=== PATIENT | female | born 1940 | race Caucasian/White ===

== ENCOUNTER 2017-02-05 15:03 | Observation (INO) ==
--- NOTE | 2017-02-05 15:47 | EKG Report ---
Test Performed on : 02/05/2017 3:02:55 PM Test Reason : GENERAL ADULT Blood Pressure : / mmHG Vent. Rate : 082 BPM Atrial Rate : 082 BPM P-R Int : 178 ms QRS Dur : 100 ms QT Int : 414 ms P-R-T Axes : 088 031 067 degrees QTc Int : 483 ms Sinus rhythm. with frequent premature ventricular complexes. in a pattern of bigeminy. Otherwise normal ECG No previous ECGs available Unconfirmed Result
[2017-02-05 15:55] LABS: MANUAL DIFF NEEDED? NO
[2017-02-05 15:57] LABS: BASO% 1.5 % (0.0-0.8); EOS# 0.17 X1000 (0.0-0.7); EOS% 3.2 % (0.0-10.0); HEMATOCRIT 43.7 % (37.0-47.0); HEMOGLOBIN 14.7 g/dL (12.0-16.0); IMM GRAN# 0.01 X1000 (0.0-0.04); IMM GRAN% 0.2 % (0.0-0.5); LYMPH# 1.61 X1000 (1.2-3.4); LYMPH% 30.4 % (20.5-51.1); MCH 29.8 PG (27-31); MCHC 33.6 g/dL (33-37); MCV 88.6 FL (81-99); MONO% 11.3 % (1.7-9.3); MPV 10.1 FL (7.4-10.4); NEUT% 53.4 % (42.2-75.2); PLT 237 X1000 (130-400); RBC 4.93 XMIL (4.2-5.4)
[2017-02-05 16:16] LABS: URINE CULTURE PL NEEDED? NO
[2017-02-05 16:25] LABS: AGAP 16; ALBUMIN 4.6 g/dL (3.5-5.0); ALKALINE PHOSPHATASE 60 U/L (32-104); BUN 16 mg/dL (8-22); CALCIUM 9.8 mg/dL (8.8-10.2); CHLORIDE 103 mmol/L (98-107); CK PROFILE 131 U/L (24-173); COSMO 280; GOT 25 U/L (10-30); GPT 14 U/L (10-36); MAGNESIUM 2.2 mg/dL (1.5-2.7); POTASSIUM 3.9 mmol/L (3.5-5.1); SODIUM 140 mmol/L (136-145); TCO2 22 mmol/L (25-35); TOTAL PROTEIN 7.1 g/dL (6.3-8.3)
[2017-02-05 16:47] LABS: INR 0.88 (0.86-1.15); PROTIME 12.3 Seconds (12.1-15.5)
[2017-02-05 16:47] LABS: BILIRUBIN URINE NEGATIVE (NEGATIVE); BLOOD URINE NEGATIVE (NEGATIVE); CLARITY CLEAR (CLEAR); COLOR YELLOW; GLUCOSE URINE NEGATIVE (NEGATIVE); LEUKOCYTES URINE NEGATIVE (NEGATIVE); NITRITE URINE NEGATIVE (NEGATIVE); PH URINE 6.5; PROTEIN URINE NEGATIVE (NEGATIVE); SP GRAVITY URINE 1.005; URINE EPITHELIAL CELLS <10 /HPF (<10); UROBILINOGEN URINE NORMAL
[2017-02-05 16:48] LABS: PTT PL 25.1 Seconds (22.6-43.9)
[2017-02-05 16:48] LABS: URINE SOURCE CLEAN CATCH
--- NOTE | 2017-02-05 16:51 | Diag Imaging Result Document ---
PROCEDURE NAME: CHEST-2 VIEWS - 02/05/2017 CHEST X-RAY TWO-VIEWS: COMPARISON: None. FINDINGS: There is some scattered linear atelectasis or scarring in the lung bases. No focal infiltrates, pneumothorax, or pleural effusion. There is a moderate compression fracture at T12 that appears probably chronic. IMPRESSION: No specific acute disease.
--- NOTE | 2017-02-05 17:33 | ED EKG INTERP ---
This chart was entered by Miladys Herzog Scribe, acting as scribe for Tomy Jay MD. EKG Interpretation - EKG Time of EKG reading by physician:: 15:02 EKG Read and Signed by:: Tomy Jay EKG Interpretation (*Must complete 3 of following elements*): Abnormal (rhythm - sinus rhythm with frequent premature ventricular complexes in a pattern of bigeminy) Rate: 82 This chart was documented by the indicated scribe, (Miladys Herzog Scribe) and accurately reflects the services I performed and decisions made by me, Tomy Jay MD, as attested by the provider's signature.
--- NOTE | 2017-02-05 17:40 | PROVIDER DOCUMENTATION ---
This chart was entered by Miladys Herzog Scribe, acting as scribe for Tomy Jay MD. HPI-Cardiac General - General Chief Complaint: General Adult Stated Complaint: LOW PULSE Time Seen by Provider: 02/05/17 15:30 Source: patient Allergies/Adverse Reactions: Patient Allergies Allergy/AdvReac Type Severity Reaction Status Date / Time Penicillins AdvReac Unknown Verified 02/05/17 15:03 Home Medications: Home Medication List Medication Instructions Recorded Confirmed Last Taken Type Aspirin [Aspir-Low] 81 mg PO DAILY 02/05/17 02/05/17 02/05/17 History Valsartan/Hydrochlorothiazide 1 each PO DAILY 02/05/17 02/05/17 02/05/17 History [Valsartan-Hctz 160-12.5 mg Tab] - History of Present Illness-Cardiac Nature of Presenting Problem: Pt is 76 y/o F presents to the ED with bradycardia. Pt states heart rate has been slow the past two days. Pt states was at PCP and was sent here for slow heart rate. Pt denies chest pain. Location: denies: substernal, central, epigastric, shoulder, back, abdomen Quality of Pain: reports: none Onset/Duration: 2 days ago Timing: intermittent Context/Activities at Onset: reports: light activity Modifying Factors: improves with: nothing Palpitation Quality: slow heart rate History of arrythmia: reports: none Recent use of:: reports: no stimulants Nitro Today/Relief: reports: no nitro taken today Aspirin Treatment Today: reports: no aspirin today Prior Chest Pain/Cardiac Workup: reports: no prior chest pain, no prior cardiac workup Associated Symptoms: reports: denies symptoms Similar Symptoms Previously?: Yes Recently Seen Here or By Another Healthcare Provider: Yes Review of Systems - Adult - REVIEW OF SYSTEMS - ADULT Constitutional: reports: no symptoms reported Eyes: reports: no symptoms reported Ears, Nose, Mouth & Throat: reports: no symptoms reported Cardiovascular: reports: irregular heart rate (dorita). denies: chest pain, heart murmur Respiratory: reports: no symptoms reported Gastrointestinal: reports: no symptoms reported Genitourinary: reports: no symptoms reported Musculoskeletal: reports: no symptoms reported Integumentary: reports: no symptoms reported Neurological: reports: no symptoms reported Psychiatric: reports: no symptoms reported Endocrine: reports: no symptoms reported Hematologic/Lymphatic: reports: no symptoms reported Allergic/Immunologic: reports: no symptoms reported All Other Systems: Reviewed and Negative Past History - Adult - PAST MEDICAL HISTORY-ADULT Review of Records: reports: Nursing Assessment Review, Medications Reviewed, Social history reviewed & non-contributory. Major Childhood Illnesses: reports: denies history Cardiovascular: reports: HTN Respiratory: reports: denies history Gastrointestinal: reports: denies history Obstetrical/Gynecological: reports: denies history Genitourinary: reports: denies history Musculoskeletal: reports: denies history Neurological: reports: denies history Endocrine/Immune: reports: denies history Other Conditions: reports: denies history - PRIOR SURGERIES/PROCEDURES Surgical/Procedure History: reports: hysterectomy - IMMUNIZATION STATUS Childhood Immunizations: See Nurse Assessment Flu Vaccine: See Nurse Assessment - FAMILY HISTORY Family History: reviewed, not pertinent - SOCIAL HISTORY Smoking: denies Substance Use: denies Living Situation: family Physical Exam-General - PHYSICAL EXAM-ADULT Initial Vital Signs Reviewed: Yes - CONSTITUTIONAL General Appearance: appears well, alert, no apparent distress - EYES Eyes: PERRL/EOMI, pink conjunctivae - HEAD, EARS, NOSE, MOUTH & THROAT HENMT: normocephalic/atraumatic, moist mucous membranes, normal ENT inspection, TMs normal, pharynx normal - NECK Neck: non-tender, full range of motion, supple, normal inspection - RESPIRATORY Respiratory: chest non-tender, lungs clear, normal breath sounds, no pleuratic chest pain, no respiratory distress, no accessory muscle use - CARDIOVASCULAR Cardiovascular: normal peripheral pulses, regular rate, rhythm, no edema, no gallop, no JVD, no murmur - GASTROINTESTINAL (ABDOMEN) Abdominal Exam: normal bowel sounds, non tender, soft, no organomegaly, no pulsatile mass - LYMPHATIC Lymphatic: no adenopathy - MUSCULOSKELETAL Back Exam: normal inspection, no CVA tenderness, no vertebral tenderness Extremity: normal range of motion, non-tender, normal gait, normal inspection, no pedal edema, no calf tenderness, normal capillary refill - SKIN Integumentary: normal color, normal turgor, warm/dry - NEUROLOGIC Neurologic: grossly normal - PSYCHIATRIC Psych/Mental Status: normal mood/affect, oriented x 3 Progress - PLAN OF CARE/RESULTS Progress/Plan/Lab Results: Vital Signs - 8 hr 02/05/17 15:05 02/05/17 15:46 02/05/17 16:05 Pulse Rate 83 68 79 Respiratory Rate 24 15 20 Blood Pressure 191/85 166/78 192/76 O2 Sat by Pulse Oximetry 98 93 L 96 02/05/17 16:31 02/05/17 16:41 02/05/17 17:39 Pulse Rate 71 68 66 Respiratory Rate 24 17 14 Blood Pressure 171/61 163/63 155/68 O2 Sat by Pulse Oximetry 96 95 95 Laboratory Results - last 24 hr 02/05/17 02/05/17 02/05/17 15:13 15:13 15:13 WBC RBC Hgb Hct MCV MCH MCHC RDW Std Deviation Plt Count MPV Immature Gran % (Auto) Neut % (Auto) Lymph % (Auto) [place] % (Auto) Eos % (Auto) Baso % (Auto) Immature Gran # (Auto) Neut # (Auto) Lymph # (Auto) [place] # (Auto) Eos # (Auto) Baso # (Auto) PT INR APTT (Factor Assay) D-Dimer Sodium 140 Potassium 3.9 Chloride 103 Carbon Dioxide 22 L Anion Gap 16 BUN 16 Creatinine 0.7 Estimated GFR/1.73 m2 > 60 BUN/Creatinine Ratio 23 Glucose 87 Calculated Osmolality 280 Calcium 9.8 Magnesium 2.2 Total Bilirubin 0.60 AST 25 ALT 14 Alkaline Phosphatase 60 Creatine Kinase 131 Troponin T < 0.010 [id number]-Mtatkqmhtzw Pept 521 H Total Protein 7.1 Albumin 4.6 Globulin 3.0 Albumin/Globulin Ratio 2.0 Urine Source Urine Color Urine Clarity Urine pH Ur Specific [place] Urine Protein Urine Ketones Urine Blood Urine Nitrite Urine Bilirubin Urine Urobilinogen Urine WBC Ur Epithelial Cells Urine Glucose 02/05/17 02/05/17 02/05/17 15:13 15:13 16:00 WBC 5.30 RBC 4.93 Hgb 14.7 Hct 43.7 MCV 88.6 MCH 29.8 MCHC 33.6 RDW Std Deviation 12.9 Plt Count 237 MPV 10.1 Immature Gran % (Auto) 0.2 Neut % (Auto) 53.4 Lymph % (Auto) 30.4 [place] % (Auto) 11.3 H Eos % (Auto) 3.2 Baso % (Auto) 1.5 H Immature Gran # (Auto) 0.01 Neut # (Auto) 2.83 Lymph # (Auto) 1.61 [place] # (Auto) 0.60 H Eos # (Auto) 0.17 Baso # (Auto) 0.08 PT 12.3 INR 0.88 APTT (Factor Assay) 25.1 D-Dimer 0.66 H Sodium Potassium Chloride Carbon Dioxide Anion Gap BUN Creatinine Estimated GFR/1.73 m2 BUN/Creatinine Ratio Glucose Calculated Osmolality Calcium Magnesium Total Bilirubin AST ALT Alkaline Phosphatase Creatine Kinase Troponin T Fkg-B-Olnuvubpywn Pept Total Protein Albumin Globulin Albumin/Globulin Ratio Urine Source CLEAN CATCH Urine Color YELLOW Urine Clarity CLEAR Urine pH 6.5 Ur Specific [place] 1.005 Urine Protein NEGATIVE Urine Ketones NEGATIVE Urine Blood NEGATIVE Urine Nitrite NEGATIVE Urine Bilirubin NEGATIVE Urine Urobilinogen NORMAL Urine WBC NEGATIVE Ur Epithelial Cells <10 Urine Glucose NEGATIVE Orders Category Date Time Status Cardiac Monitoring DIRECTED Care 02/05/17 15:48 Active Saline Loc NOW Care 02/05/17 15:48 Active CHEST-2 VIEWS [RAD] Stat Exams 02/05/17 15:48 Draft CBC WITH ELECTRONIC DIFF [HEME] Stat Lab 02/05/17 15:13 Completed CK PROFILE [SP CHEM] Stat Lab 02/05/17 15:13 Completed COMPREHENSIVE METABOLIC PANEL [CHEM] Stat Lab 02/05/17 15:13 Completed D-DIMER PL [COAG] Stat Lab 02/05/17 15:13 Completed MAGNESIUM [CHEM] Stat Lab 02/05/17 15:13 Completed PRO B-NATRIURETIC PEPTIDE Stat Lab 02/05/17 15:13 Com[address]IME WITH INR PL [COAG] Stat Lab 02/05/17 15:[address] [COAG] Stat Lab 02/05/17 15:13 Completed TROPONIN T Stat Lab 02/05/17 15:[address] W/POSS RFLX CULT [URINALYSIS] Stat Lab 02/05/17 16:00 Completed EKG [EKG] Stat Ther 02/05/17 15:45 Draft Result Diagrams: 02/05/17 15:13 02/05/17 15:13 - REASSESSMENT Reassessment #1 Time Reassessed: 17:37 Status: improving (Pt is completely asymptomatic. On monitor, Pulse Ox shows her HR=30s, by the cardiac monitoring shows 70s, and her cardiac strip shows bigeminy - one normal beat follows a PVC. Pt showed me a log for her BP and HR since several days ago - normal BPs, but HR=30s-70s. Sounds like her BP machine picked up the bigeminy as one beat. Called to Dr. Phong Gar's office and awating for call back.) Reassessment #2 Time Reassessed: 17:49 Status: improving - XRAY 1 XRAY Study: Chest Impression: Normal XRAY Interpretation: no acute disease - CONSULTS/PCP/HOSPITALIST Notification #1 *Consult/PCP/Hospitalist*: Dr. Gar Time Discussed: 17:44 (Dr. Gar states talk to Hospitalist) Reason/Comments: Dr. Jay consulted with Dr. Gar about Pt Consult Disposition: other (Per Dr. Gar's request, pt will be admitted to Dr. Ferrer) Departure - Departure Time of Disposition Decision: 17:50 DIAGNOSIS: Arrhythmia Qualifiers: Arrhythmia type: other cardiac arrhythmia Qualified Code(s): I49.8 - Other specified cardiac arrhythmias Disposition: ADMITTED INPATIENT 09 Certified Medical Emergency: Emergent Condition: Stable Referrals and Follow-Ups: Phong Gar MD [Primary Care Provider] - - Critical Care Note This patient required my direct personal management.: No This chart was documented by the indicated scribe, (Miladys Herzog Scribe) and accurately reflects the services I performed and decisions made by me, Tomy Jay MD, as attested by the provider's signature.
[2017-02-06] MEDS ORDERED: ASPIRIN EC PO SCH (09:00)
--- NOTE | 2017-02-06 10:33 | Diag Imaging Result Document ---
PROCEDURE NAME: ANGIOGRAM/PULMONARY ARTERIES - 02/06/2017 CTA CHEST: COMPARISON: None available. FINDINGS: There is no evidence of pulmonary embolism. There is mild patchy aortic atherosclerotic calcification. There is no evidence of aortic aneurysm. The heart does not appear to be significantly enlarged. There is a small calcified right hilar lymph node suggesting prior granulomatous disease. There is a calcified granuloma at the left lung apex. There are a few small noncalcified nodules bilaterally. For reference, the largest measured nodule on the left is in the left upper lobe on image 44 of series 6 and measures 5.2 mm in the greatest dimension. On the right, the largest measured nodule is in the right lower lobe abutting the major fissure measuring up to 5 mm in the greatest dimension. Statistically, these likely represent noncalcified granulomata. If clinically warranted, consider CT surveillance based on Gume Society Criteria. There is trace subsegmental atelectasis at the lung bases. The lungs are clear otherwise. There is a small cyst density focus arising from the left kidney and a small cyst density focus involving the right hepatic lobe. Limited views of the upper abdomen are grossly unremarkable, otherwise. IMPRESSION: 1. No evidence of pulmonary embolism or other definite acute pathology. 2. Trace subsegmental atelectasis at the lung bases. 3. A few small subcentimeter noncalcified nodules bilaterally that very likely represent noncalcified granulomata. Please see above discussion. 4. Other incidental/nonacute findings detailed above.
--- NOTE | 2017-02-06 12:22 | EKG Report ---
Test Performed on : 02/06/2017 12:07:44 PM Test Reason : bigeminy Blood Pressure : / mmHG Vent. Rate : 066 BPM Atrial Rate : 066 BPM P-R Int : 176 ms QRS Dur : 092 ms QT Int : 440 ms P-R-T Axes : 070 009 079 degrees QTc Int : 461 ms Normal sinus rhythm. Normal ECG When compared with ECG of 05-FEB-2017 15:02, (Unconfirmed) premature ventricular complexes. are no longer present Confirmed by Brendan Momin MD ([id number]) on 02/11/2017 4:55:38 AM
--- NOTE | 2017-02-06 13:28 | HISTORY AND PHYSICAL ---
PRIMARY CARE PHYSICIAN: Dr. Gar. CHIEF COMPLAINT: Bradycardia. HISTORY OF PRESENTING ILLNESS: This is a 76-year-old female who presented to [facility] ER after she was seen at her primary care physician's office yesterday and was noted to have a heart rate of 34. Patient states that she has had some periods of low heart rate but that she did realize that was a point of concern until she was seen by her primary care physician yesterday. She states she has not had any chest pain, shortness of breath. She said she has some dizziness intermittently. On arrival to the emergency room her heart rate was 83 and stayed pretty consistently around the upper 60s to the mid 70s until around 4 a.m. this morning and then she had an episode of bradycardia at 45. Her EKG on arrival showed sinus rhythm with frequent PVCs in a pattern of bigeminy at 82. Laboratory data was fairly unremarkable except she did have a mild elevation in her D-dimer at 0.66. First set of cardiac enzymes were negative. ProBNP was 521. So she is being admitted for further evaluation and treatment. PAST MEDICAL HISTORY: Hypertension. PAST SURGICAL HISTORY: Hysterectomy, back and neck surgery. FAMILY HISTORY: Noncontributory. SOCIAL HISTORY: She currently lives with family. Denies any tobacco, alcohol, or illicit drug use. ALLERGIES: Penicillin. HOME MEDICATIONS: She takes valsartan/hydrochlorothiazide 160/12.5, 1 p.o. daily will be held, aspirin 81 mg p.o. daily we will continue. LABORATORY DATA: Showed a white blood cell count of 5.30, hemoglobin 14.7, hematocrit 43.7, platelets 237,000. PT and INR 12.3 and 0.88 with a D-dimer of 0.66. Sodium of 140, potassium 3.9, chloride 103, CO2 22, BUN of 16, creatinine 0.7, glucose of 87. Magnesium of 2.2. Creatine kinase 131. Troponin less than 0.010. ProBNP of 521. Urinalysis was negative. Chest x-ray showed no specific acute disease. EKG showed sinus rhythm with frequent PVCs in a pattern of bigeminy at 82. Repeat EKG approximately 15 minutes later showed sinus rhythm with frequent PVCs in a pattern of bigeminy at 82 also. REVIEW OF SYSTEMS: She denied any blurred vision. She was positive for some intermittent dizziness. Denied any chest pain, coughing, shortness of breath. Denied any abdominal pain, constipation, diarrhea, burning or hurting with urination. PHYSICAL EXAMINATION: VITAL SIGNS: On arrival, pulse was 83, respirations 24, blood pressure 191/85, saturating 98% on room air. Again, she stayed in upper 60s to lower 80s until around 4 a.m. this morning she had a heart rate of 45. Currently she is at 67. GENERAL: This is a 76-year-old female who is sitting up in the bed, and answers questions appropriately. HEENT: Normocephalic and atraumatic. Pupils are equal, round, reactive to light. Extraocular movements are intact. Oropharynx and nares are clear. NECK: Supple. LUNGS: Clear to auscultation bilaterally with equal lung expansion and chest wall movement. HEART: With regular rate and rhythm. No murmurs, rubs, or gallops. ABDOMEN: Soft, nontender, nondistended. Bowel sounds are present x4 quadrants. EXTREMITIES: No clubbing, cyanosis, or edema. NEUROLOGICAL: The cranial nerves 2-12 appear grossly intact. ASSESSMENT: 1. Bradycardia. 2. Bigeminy. 3. Hypertension. 4. Elevated D-dimer. PLAN: She was admitted to the medical unit at [facility], placed on telemetry, healthy heart diet. We will obtain an echocardiogram. We will also do a pulmonary arteriogram. Continue her aspirin. Will hold her valsartan hydrochlorothiazide at this time and will check another set of cardiac enzymes this a.m. We will more than likely need Cardiology input but will obtain these tests and get the results back first and will discuss with attending when to consult with Cardiology. Discussed living will and code status with patient. Wanted information on living will, info provided by social work manager and wants to be a full code. Dictated by MARINA Hurt for Teddy Ferrer MD cc: MARINA Hurt MD Dr. Jackson pt examined, agree with above, await cardiology recs for rx versus other workup including ischemic workup [facility]
[2017-02-06 20:37] VITALS: BP 126/55
--- NOTE | 2017-02-06 21:55 | ECHO REPORT ---
ORDER DATE: 02/06/2017 MEASUREMENTS: Left ventricular end-diastolic diameter 5.1, end-systolic diameter 3.4, posterior wall thickness 1.1, septal thickness 1.1, left atrium 4.4, aortic root 3.9. SUMMARY: 1. Adequate quality acoustic windows. 2. Aortic valve is trileaflet and opens normally on 2-dimensional images. Peak gradient is approximately 10 mmHg. There is mild thickening of anterior mitral leaflet and posterior mitral leaflets. Trace mitral regurgitation. Tricuspid and pulmonic valves are without obstruction abnormality with mild tricuspid regurgitation and trace pulmonic insufficiency. The estimated systolic PA pressure by Doppler is 40-45 mmHg. The aortic root is normal in size. 3. Normal left ventricular dimensions suggested. Estimated left ejection fraction appears to be at least 55%. Assessment of left ventricular systolic function wall motion analysis is somewhat challenging given the frequent ventricular ectopy during study. No wall motion abnormalities can be appreciated. Doppler suggests grade 1 left ventricular diastolic dysfunction. Left atrium is mildly enlarged. Right atrium and right ventricle are normal in size with normal right ventricular systolic function. 4. No pericardial effusion. 5. Appearance of inferior vena cava suggests normal central venous pressure. 6. Sinus rhythm with frequent ventricular ectopy during the study. CONCLUSION: 1. Mild tricuspid regurgitation with mild pulmonary hypertension by Doppler. 2. Normal left ejection fraction. 3. Grade 1 left ventricular diastolic dysfunction. 4. Mild left atrial enlargement. 5. Sinus rhythm with frequent premature ventricular ectopy. cc: MD Natalie Franco CRNP
--- NOTE | 2017-02-07 03:08 | CONSULTATION ---
DATE OF CONSULTATION: 02/06/2017 IMPRESSION: 1. Frequent ventricular ectopy and periods of ventricular bigeminy. Suspect low pulse rate, probably related to ventricular ectopy. 2. Hypertension. 3. History of non-Hodgkin's lymphoma and previous chemotherapy in 2011. Patient relates she has not had clinical recurrence since that time. 4. Probable venous insufficiency in the lower extremities. RECOMMENDATIONS: 1. Follow up echocardiography result. 2. Check serum magnesium level. 3. Reasonable to transition to outpatient evaluation soon, given patient's lack of symptoms, with frequent ventricular ectopy and good functional status. HISTORY OF PRESENT ILLNESS: This 76-year-old white female, with a past history of hypertension and non-Hodgkin's lymphoma, was admitted on referral from her primary care physician's office for management of low pulse. She is asymptomatic from a cardiovascular standpoint, and is fairly active. There is no history of chest pain, shortness of breath, palpitations, or syncope. She returned for routine followup, and was noted to have a slow pulse. Interestingly, several weeks ago, she had followup in her oncologist's office, and it was noted that she had extrasystoles. She was referred to the hospital by ambulance for admission and further workup. ECGs here have demonstrated frequent ventricular ectopy, as well as periods of ventricular bigeminy. There has been no ventricular tachycardia. PAST MEDICAL HISTORY: 1. Hypertension. 2. Non-Hodgkin's lymphoma, treated with chemotherapy 5 years ago, without clinical evidence of recurrence on followup. PAST SURGICAL HISTORY: 1. Cervical spine surgery. 2. Lumbar disk surgery. 3. Hysterectomy. ALLERGIES: She is allergic or intolerant to penicillin. MEDICATIONS: Prior to admission, includes valsartan/hydrochlorothiazide 160/12.5 one p.o. daily, and aspirin 81 mg p.o. daily. SOCIAL HISTORY: She does not smoke or use alcohol. FAMILY HISTORY: Negative for premature coronary disease. REVIEW OF SYSTEMS: Pulmonary: Negative. Gastrointestinal: Negative. Constitutional: Negative. The remainder of the review of systems negative, with 14 total systems reviewed. PHYSICAL EXAMINATION: Vital Signs: Blood pressure 134/74, heart rate 69 and regular, oxygen saturation 97% on room air. General: A pleasant, older female in no distress. Vital Signs: As recorded, are stable. HEENT: Extraocular movements are intact. Mucous membranes are moist. Neck: Supple, without jugular venous distention. There are no carotid bruits. Chest: Clear to auscultation. Cardiac: Reveals a regular rate and rhythm, with frequent extrasystoles. No murmur or gallop could be appreciated. Abdomen: Soft, nontender. Bowel sounds are normal. Extremities: Without edema. Neurologic: Shows her to be alert, fully-oriented. Speech is fluent. She moves all 4 extremities equally well. Skin: Warm and dry. Psychiatric: Reveals mood to be appropriate. DIAGNOSTIC DATA: ECG obtained on admission demonstrates sinus rhythm, with frequent premature ventricular complexes and episodes of ventricular bigeminy, and nonspecific T-wave abnormality, as well as borderline prolonged QT interval. LABORATORY DATA: Includes potassium 3.9, BUN 16, creatinine 0.7, magnesium 2.2. Initial troponin less than 0.01. Followup troponin 0.01. Repeat 12-lead today shows normal sinus rhythm. It is within normal limits. cc: Noel Duff MD
--- NOTE | 2017-03-13 20:30 | DISCHARGE SUMMARY ---
ADMISSION DATE: 02/05/2017 DISCHARGE DATE: 02/06/2017 DISCHARGE DIAGNOSES: 1. Bradycardia with bigeminy. 2. Hypertension. 3. Elevated D-dimer. DISCHARGE DIAGNOSES: 1. Bradycardia with bigeminy. 2. Hypertension. 3. Elevated D-dimer. HISTORY: Briefly, this is a 76-year-old female presenting with a heart rate in the 30s with weakness. She had a bigeminy pattern. D-dimer was mildly elevated at 0.66. She was placed on telemetry. Echocardiogram. Pulmonary arteriogram was analyzed. Pulmonary arteriogram I think showed no PE, some subsegmental atelectasis. Small sub cm noncalcified nodules. . was consulted and felt that patient could go home on some medications and pursue outpatient noninvasive imaging. Patient was discharged in stable condition on aspirin 81 daily and valsartan 160/12.5 daily. Told to follow up with her PCP who [facility]. DISCHARGE CONDITION: Stable. cc: Teddy Ferrer MD
== END 2017-02-06 22:00 | disposition home or self-care (01) ==
LOC: P.MEDSURG 15:03 → P.ED 15:03
PROVIDERS: ATTEND Internal Medicine